=== PATIENT | male | born 1930 | race Caucasian/White ===

== ENCOUNTER 2022-07-23 15:01 | Observation (INO) ==
[2022-07-23] MEDS ORDERED: 0.9 % Sodium Chloride 1,000 ML IV ONE (15:08)
[2022-07-23 15:34] LABS: Basophils % 0.5 %; Eosinophils % 0.3 %; Hematocrit 42.2 % (37.5-50.1); Hemoglobin 13.6 g/dL (12.9-16.9); Immature Granulocytes % 0.3 % (0-4); Lymphocytes # 0.7 K/mcL (0.6-4.6); Lymphocytes % 10.6 %; Mean Corpuscular HGB Conc 32.2 g/dL (31.6-35.5); Mean Platelet Volume 10.1 fL (9.4-12.4); Monocytes # 0.7 K/mcL (0.0-1.3); Monocytes % 10.1 %; Platelet Count 201 K/mcL (140-400); Red Blood Count 4.85 M/mcL (4.19-5.50); Red Cell Distribution Width 14.9 % (11.5-14.5); Segmented Neutrophils % 78.2 %; White Blood Count 6.4 K/mcL (4.3-11.1)
[2022-07-23 15:39] LABS: INR 1.8; Prothrombin Time 19.9 Seconds (9.4-12.1)
[2022-07-23 15:51] LABS: Albumin 4.3 g/dL (3.5-5.7); Albumin/Globulin Ratio 1.2 (1.1-2.2); Bilirubin,Total 1.3 mg/dL (0.3-1.0); Calcium 9.7 mg/dL (8.6-10.3); Globulin 3.7 g/dL (2.4-3.5); Phosphorous 2.8 mg/dL (2.7-4.5); Potassium 4.4 mEq/L (3.5-5.1)
[2022-07-23 15:54] LABS: Troponin I < 0.03 ng/mL (< 0.04)
[2022-07-23 16:26] LABS: Bilirubin,Urine Small (Negative); Blood,Urine Negative (Negative); Clarity,Urine Cloudy (Clear); Color,Urine Yellow (Yellow); Glucose,Urine (UA) Normal (Normal); Ketones,Urine Negative (Negative); Leukocyte Esterase,Urine Negative (Negative); Nitrite,Urine Negative (Negative); PH,Urine 5.5 pH Units (5.0-8.0); Protein,Urine 30 mg/dL (Neg-Trace); Specific Gravity,Urine >= 1.030 (1.010-1.025); Urobilinogen,Urine Normal (Normal)
[2022-07-23] MEDS ORDERED: Acetaminophen 325 MG TABLET PO PRN (16:27)
[2022-07-23] MEDS ORDERED: Ondansetron 4 MG/2 ML VIAL IVP PRN (16:27)
[2022-07-23] MEDS ORDERED: Naloxone 0.4 MG/ML INJ IVP PRN (16:27)
[2022-07-23 16:34] LABS: Bacteria,Urine Moderate per hpf (None-Few); WBC,Urine 0-3 per hpf (0-3)
[2022-07-23] MEDS ORDERED: 0.9 % Sodium Chloride 1,000 ML IVC SCH (16:45)
[2022-07-23] MEDS: cefTRIAXone 1,000 MG in 0.9 % Sodium Chloride 10 ML IVP SCH (18:11)
[2022-07-23] MEDS: 0.9 % Sodium Chloride 1,000 ML IVC SCH (18:11)
[2022-07-23] MEDS: Apixaban 5 MG TABLET PO SCH (21:49)
[2022-07-24] MEDS: 0.9 % Sodium Chloride 1,000 ML IVC SCH (02:29)
[2022-07-24 05:18] LABS: Hematocrit 36.2 % (37.5-50.1); Hemoglobin 11.9 g/dL (12.9-16.9); Mean Corpuscular HGB Conc 32.9 g/dL (31.6-35.5); Mean Corpuscular Hemoglobin 28.4 pg (28.0-33.3); Mean Corpuscular Volume 86.4 fL (83.0-100.0); Mean Platelet Volume 10.3 fL (9.4-12.4); Platelet Count 173 K/mcL (140-400); Red Blood Count 4.19 M/mcL (4.19-5.50); White Blood Count 4.4 K/mcL (4.3-11.1)
[2022-07-24 05:36] LABS: Albumin 3.5 g/dL (3.5-5.7); Albumin/Globulin Ratio 1.2 (1.1-2.2); Bilirubin,Total 0.6 mg/dL (0.3-1.0); Calcium 8.2 mg/dL (8.6-10.3); Chol/HDL Ratio 4.4 (0-4.9); Magnesium 1.7 mg/dL (1.6-2.6); Total Protein 6.5 g/dL (6.4-8.9)
[2022-07-24 07:17] VITALS: O2SAT 93
[2022-07-24] MEDS: Apixaban 5 MG TABLET PO SCH (09:13)
[2022-07-24] MEDS: cefTRIAXone 1,000 MG in 0.9 % Sodium Chloride 10 ML IVP SCH (09:13)
[2022-07-24 11:38] VITALS: BP 154/79; PULSE 67; RESP 14; TEMP 98.3
== END 2022-07-24 17:58 | disposition home health service (06) ==
LOC: EMEROOGRE 15:01 → INPGRE 15:01
PROVIDERS: ADMIT Family Medicine; ATTEND Family Medicine